=== PATIENT | male | born 1945 | race Two or more races ===

== ENCOUNTER 2020-08-14 14:13 | Outpatient (CLI) | payer OTHER | END 2020-08-14 14:24 | disposition home or self-care (01) | LOC: SONOGRAMA 14:13 | PROVIDERS: ATTEND Otolaryngology | DX: E21.0 Primary hyperparathyroidism (principal); E04.2 Nontoxic multinodular goiter ==

== ENCOUNTER 2020-08-22 12:56 | Outpatient (CLI) | payer OTHER | END 2020-08-22 13:02 | disposition home or self-care (01) | LOC: NUCLEAR 12:56 | DX: M81.0 Age-related osteoporosis without current pathological fracture (principal) ==

== ENCOUNTER → 2020-08-28 | Outpatient (CLI) | payer OTHER | END | disposition home or self-care (01) | LOC: OFIC 805 11:55 | PROVIDERS: ATTEND Otolaryngology | DX: E04.1 Nontoxic single thyroid nodule (principal); R49.0 Dysphonia; K21.9 Gastro-esophageal reflux disease without esophagitis ==